=== PATIENT | male | born 1930 | race Caucasian/White ===

== ENCOUNTER 2016-07-31 10:55 | Emergency (ER) | payer OTHER ==
[~2016-07-31] VITALS: Ht 175.3 cm; Wt 88.4 kg
[~2016-07-31 10:55] MED LIST: CHOL1CAP6 PO; CYAN1TAB24 PO; GLIM2TAB PO; LEVO100T5 PO; PRAV10TA PO
[2016-07-31 11:04] VITALS: BP 130/79; PULSE 73; RESP 16; TEMP 97.4; O2SAT 97
--- NOTE | 2016-07-31 11:18 | PD ---
HPI Chief Complaint: Eye Problems/Injury Time Seen by Provider: 11:10 Travel History International Travel<30 days: No Contact w/Intl Traveler<30days: No Traveled to known affect area: No History of Present Illness HPI 85-year-old male presents emergency department for evaluation of right eye irritation and foreign body sensation. He reports that 30 mins prior to arrival he was out in his yard doing yard work when a branch or relief grazed his right thigh. He reports that he had immediate pain and irritation within the eye, severity 4 out of 10, relieved with closing the eye. He reports some blurred vision due to the tearing of the eye. He reports a foreign body sensation. He rinsed the eye at home. He denies any other medical complaint. [facility] Past Medical History Narrative Medical Significant for hyperlipidemia, hypothyroidism, High Cholesterol: Yes Diabetes: Yes Patient Takes Glucophage: No Diminished Hearing: No Thyroid Disease: Yes (Hypo-) Tetanus Vaccination: < 5 Years Influenza Vaccination: No Past Surgical History Appendectomy: Yes Tonsillectomy: Yes Social History Alcohol Use: Yes (Occ.) Tobacco Use: No Substance Use: No Allergies-Medications (Allergen,Severity, Reaction): Coded Allergies: No Known Allergies (Verified , 07/31/16) Reported Meds & Prescriptions Reported Meds & Active Scripts Active Reported B12 (Cyanocobalamin) 1,000 Mcg Tab 1,500 Mcg PO DAILY Vitamin D-3 (Cholecalciferol) 1,000 Unit Cap 1 Caplet PO DAILY Pravastatin 10 Mg Tab 10 Mg PO DAILY Glimepiride 2 Mg Tab 2 Mg PO DAILY Take with breakfast or first main meal Levothyroxine (Levothyroxine Sodium) 100 Mcg Tab 100 Mcg PO DAILY Review of Systems Except as stated in HPI: all other systems reviewed are Neg Eyes: Positive: Photophobia, Redness, Pain, Tearing Physical Exam Narrative GENERAL: Alert, well-appearing elderly male in no acute distress SKIN: Focused skin assessment warm/dry. HEAD: Atraumatic. Normocephalic. EYES: Pupils equal and round. No scleral icterus. Right eye: Injected. EOMs intact. Pupils equal and round. Cornea clear. No corneal laceration. No foreign bodies visualized. No fluorescein dye uptake. No hyphema.Visual acuity is 2025 bilaterally, right20/30, left20/25. ENT: No nasal bleeding or discharge. Mucous membranes pink and moist. NECK: Trachea midline. No JVD. CARDIOVASCULAR: Regular rate and rhythm. No murmur appreciated. RESPIRATORY: No accessory muscle use. Clear to auscultation. Breath sounds equal bilaterally. MUSCULOSKELETAL: No obvious deformities. No clubbing. No cyanosis. No edema. NEUROLOGICAL: Awake and alert. No obvious cranial nerve deficits. Motor grossly within normal limits. Normal speech. PSYCHIATRIC: Appropriate mood and affect; insight and judgment normal. Data Data Last Documented VS Vital Signs Date Time Temp Pulse Resp B/P Pulse Ox O2 Delivery O2 Flow Rate FiO2 07/31/16 11:04 97.4 73 16 130/79 97 MDM Medical Decision Making Medical Screen Exam Complete: Yes Emergency Medical Condition: Yes Differential Diagnosis Corneal abrasion, corneal foreign body Narrative Course 85-year-old male presents emergency department for evaluation of right eye irritation after branch grazed his right eye. Visual acuity is 20/25 bilaterally, right20/30, left20/25. On exam the patient has a right injected by there is no foreign body visualized on exam. Carcamo lamp exam reveal no foreseen dye uptake. Patient will be treated for suspected corneal abrasion. Patient is followed by ophthalmology for routine eye exams and agrees to make an appointment for follow-up with them in 1-2 days. Diagnosis Primary Impression: Corneal abrasion Qualified Code: S05.01XA - Corneal abrasion, right, initial encounter Referrals: Concierge Receptionist Additional Instructions: Use the antibiotic ointment as prescribed. Make an appointment for follow-up with ophthalmology in one to 2 days. Return to the emergency department if he has new or worsening symptoms. Scripts Erythromycin Opth Oint 5 Mg/Gm Oint1 Applic RIGHT EYE QID #1 TUBE Ref 0 Prov:Judit Whyte 07/31/16 Disposition: DISCHARGE HOME Condition: Stable Judit Whyte Jul 31, 2016 11:18
[2016-07-31] MEDS ORDERED: ERYTOIN10 RIGHT EYE (11:28)
== END 2016-07-31 11:40 | disposition home or self-care (01) ==
LOC: PHEFT 10:55
DX: S05.01XA Injury of conjunctiva and corneal abrasion without foreign body, right eye, initial encounter (principal); E78.5 Hyperlipidemia, unspecified; E03.9 Hypothyroidism, unspecified; E78.00 Pure hypercholesterolemia, unspecified; E11.9 Type 2 diabetes mellitus without complications; X58.XXXA Exposure to other specified factors, initial encounter; Y93.H2 Activity, gardening and landscaping; Y92.096 Garden or yard of other non-institutional residence as the place of occurrence of the external cause; Y99.8 Other external cause status
CPT/HCPCS: 99283